=== PATIENT | male | born 1960 | race Caucasian/White ===

== ENCOUNTER → 2016-12-28 | Outpatient (CLI) | payer OTHER | LOC: CIMAGING 11:22 | PROVIDERS: ATTEND Family Medicine | DX: R05 Cough (principal); R50.9 Fever, unspecified | CPT/HCPCS: 71020-PO ==

== ENCOUNTER 2017-03-01 08:54 | Emergency (ER) | payer MEDICAID, OTHER ==
[2017-03-01 09:06] VITALS: BP 133/75; PULSE 58; RESP 16; TEMP 98.1; O2SAT 96
[2017-03-01] MEDS ORDERED: LIDO/EPI 1% **Not for Epidural 20 ML MDV ONE (09:17)
--- NOTE | 2017-03-01 09:31 | EDPHY ---
H & P Time Seen by Provider: 03/01/17 09:15 HPI/ROS: CHIEF COMPLAINT: Finger laceration HISTORY OF PRESENT ILLNESS: Patient is a 56-year-old male who presents emergency department after cutting the webspace between his 4th and 5th digit on the right. Patient was cleaning a wine glass when it broke and cut his finger. He denies foreign body. He has no numbness or tingling. No other injury. Tetanus status is up-to-date. REVIEW OF SYSTEMS: Negative Past Medical/Surgical History: Denies Smoking Status: Never smoked Physical Exam: Vitals noted General Appearance: Alert and no distress. Head: Pupils equal. Normal. Respiratory: No respiratory distress. Cardiac: regular rate and rhythm. Extremities: The patient has a 2 cm laceration that is linear in the web space between his 4th and 5th digit on the right. There is no ligament her muscle involvement. Neurovascular intact distally. Bleeding controlled. Skin: No rashes or lesions. Neuro: Alert. Normal mood and affect. Constitutional: Initial Vital Signs Temperature (C) 36.7 C 03/01/17 09:04 Heart Rate 58 L 03/01/17 09:04 Respiratory Rate 16 03/01/17 09:04 Blood Pressure 133/75 H 03/01/17 09:04 O2 Sat (%) 96 03/01/17 09:04 O2 Delivery Mode Room Air Allergies/Adverse Reactions: Penicillins Allergy (Verified 03/01/17 09:07) Home Medications: Medication Instructions Recorded Nasonex 03/01/17 Medical Decision Making ED Course/Re-evaluation: In the emergency department I discussed plan with the patient. I answered all his questions. The patient was anesthetized, had his wound cleaned and it was repaired 945: I went to the patient's room for repair but he was on the phone. I will return when he is off the phone to repair his laceration. Procedure: Laceration repair. Verbal consent was obtained from the patient. The 2 cm laceration on the webspace between the 4th and 5th digit was anesthetized in the usual fashion. The wound was irrigated, draped and explored to its base with a gloved finger. There were no deep structures involved. No tendon injury was identified. The wound was repaired with [5 0 nylon ]. The wound repair was simple. The procedure was performed by myself. Patient was given warnings prior to leaving. He will return with worsening symptoms. Differential Diagnosis: My differential includes but is not limited to laceration, ligament injury, muscle injury, arterial injury, nerve injury, fb Departure - Departure Disposition: Home, Routine, Self-Care Clinical Impression: Laceration Finger laceration Qualifiers: Encounter type: initial encounter Finger: unspecified finger Damage to nail status: without damage Foreign body presence: without foreign body Laterality: right Qualified Code(s): S61.219A - Laceration without foreign body of unspecified finger without damage to nail, initial encounter Condition: Good Instructions: Finger Laceration (ED) Additional Instructions: Wound Care Follow-Up: Removal of sutures in [ 8 ] days. Suture removal is complimentary in uncomplicated cases. Infection or abnormal findings would require reevaluation by the MD. In that case, you may be billed. Referrals: Perez Mcduffie, [Primary Care Provider] - 5-7 days, call for appt.
== END 2017-03-01 10:40 | disposition home or self-care (01) ==
LOC: CED 08:54
PROC: 0HQFXZZ Repair Right Hand Skin, External Approach (ICD-10-PCS; principal; 2017-03-01)
DX: S61.214A Laceration without foreign body of right ring finger without damage to nail, initial encounter (principal); S61.216A Laceration without foreign body of right little finger without damage to nail, initial encounter; W25.XXXA Contact with sharp glass, initial encounter